=== PATIENT | female | born 1985 | race African-American/Black ===

== ENCOUNTER 2016-11-19 09:30 | Inpatient (IN) ==
[2016-11-19] MEDS ORDERED: MAGNESIUM SULFATE 4 GM/S.W.I. 100 ML IV ONE (09:38)
[2016-11-19] MEDS ORDERED: LR 1,000 ML ONE (10:17)
[2016-11-19] MEDS ORDERED: MAGNESIUM SULFATE 4 GM/S.W.I. 100 ML ONE (10:17)
[2016-11-19] MEDS ORDERED: LABETALOL ONE (10:25)
[2016-11-19] MEDS: LR 1,000 ML IV SCH (10:29)
[2016-11-19] MEDS: LABETALOL IV PRN ×2 (10:30→15:36)
[2016-11-19 10:48] LABS: BASO% 0.4 % (0.0-0.8); EOS# 0.16 X1000 (0.0-0.7); EOS% 1.2 % (0.0-10.0); HEMATOCRIT 19.7 % (37.0-47.0); HEMOGLOBIN 5.8 g/dL (12.0-16.0); IMM GRAN# 0.08 X1000 (0.0-0.04); IMM GRAN% 0.6 % (0.0-0.5); LYMPH# 2.04 X1000 (1.2-3.4); LYMPH% 15.9 % (20.5-51.1); MANUAL DIFF NEEDED? NO; MCH 24.8 PG (27-31); MCHC 29.4 g/dL (33-37); MCV 84.2 FL (81-99); MONO# 1.04 X1000 (0.11-0.59); MONO% 8.1 % (1.7-9.3); MPV 9.9 FL (7.4-10.4); NEUT% 73.8 % (42.2-75.2); PLT 391 X1000 (130-400); RBC 2.34 XMIL (4.2-5.4)
[2016-11-19] MEDS ORDERED: MAGNESIUM SULFATE IV SCH (11:00)
[2016-11-19] MEDS ORDERED: S W I IV SCH (11:00)
[2016-11-19 12:02] LABS: AGAP 13; ALKALINE PHOSPHATASE 117 U/L (32-104); BUN 12 mg/dL (8-22); CHLORIDE 110 mmol/L (98-107); COSMO 280; GOT 41 U/L (10-30); GPT 30 U/L (10-36); POTASSIUM 4.1 mmol/L (3.5-5.1); SODIUM 141 mmol/L (136-145); TCO2 18 mmol/L (25-35); TOTAL PROTEIN 5.7 g/dL (6.3-8.3)
[2016-11-19] MEDS ORDERED: BENADRYL PO ONE (12:11)
[2016-11-19] MEDS ORDERED: TYLENOL PO ONE (12:11)
[2016-11-19] MEDS ORDERED: NS 500 ML IV ONE (12:11)
[2016-11-19] MEDS ORDERED: NS 500 ML ONE (12:23)
[2016-11-19] MEDS ORDERED: XYLOCAINE-MPF 1% 5 ML ONE (13:18)
[2016-11-19 14:40] LABS: LDH 526 U/L (135-214)
[2016-11-19] MEDS: LASIX IV SCH ×2 (16:11→18:04)
[2016-11-19] MEDS ORDERED: APRESOLINE IV ONE (18:21)
--- NOTE | 2016-11-19 20:26 | HISTORY AND PHYSICAL ---
CHIEF COMPLAINT: Sent from clinic secondary to elevated blood pressures. HISTORY OF PRESENT ILLNESS: This is a 31-year-old who presented to clinic this morning 10 days status post normal spontaneous vaginal delivery. The patient was following up for a one-week blood pressure check. Patient had mild to low severe range blood pressures in the max 160s, 170s systolic during delivery and was scheduled for close outpatient follow up. On presentation today, the patient noted a headache and blood pressure was 180/95, recheck was 210/108. The patient scotoma at that time. Reflexes were normal and she had no right upper quadrant pain. The patient was sent upstairs to labor and delivery for magnesium sulfate administration and lab work. At that time an hemoglobin and hematocrit revealed hemoglobin of 5.8, 19.7, LDH was elevated at 526. However, platelets were normal at 391 and liver function tests were relatively normal. AST was mildly elevated. However, patient did not meet HELLP criteria. The patient did note that she has been asymptomatic from an anemia standpoint. At home she has noted dizziness and lack of energy while ambulating. Started to have difficulty breast feeding. OBSTETRICAL HISTORY: Status post normal spontaneous vaginal delivery of twins on 11/09/2016. COLLECTIONS AND ARCHIVES DIRECTOR HISTORY: Denies sexually transmitted infections or abnormal Pap. PAST MEDICAL HISTORY: Denies. PAST SURGICAL HISTORY: Denies. MEDICATIONS: vitamins. ALLERGIES: No known drug allergies. SOCIAL: Denies alcohol, tobacco or illicit drug use. FAMILY HISTORY: Noncontributory. REVIEW OF SYSTEMS: Negative. PHYSICAL EXAMINATION: GENERAL: Well-developed well-nourished female, in no acute distress. HEENT: Pupils equally round and reactive to light. Extraocular muscle intact. CHEST: Clear to auscultation bilaterally. CARDIOVASCULAR: Regular rate and rhythm. No murmurs, rubs, or gallops. ABDOMEN: Soft, nontender, nondistended. EXTREMITIES: No clubbing, cyanosis, +3 pitting edema to waist. LABORATORY: White count 12.81, hemoglobin and hematocrit was 5.8, 19.7, platelets 391,000. Sodium 141, potassium 4.1, chloride 110, bicarb 18, BUN is 12, creatinine 0.7, glucose 72, calcium 8. AST was mildly elevated at 41. ALT was 13. LDH 526 and uric acid 5. ASSESSMENT: 1. Severe preeclampsia, elevated lactate dehydrogenase. 2. Symptomatic anemia. 3. day #10 status post normal spontaneous vaginal delivery. PLAN: Admit patient to [facility]. We will start magnesium sulfate. The patient did not quite meet criteria for HELLP syndrome at this time. However, given blood pressures in the severe range with need for IV antihypertensive and positive headache, we will initiate magnesium sulfate. We will give IV antihypertensives p.r.n. and will follow up labs and transfuse 3 units packed red blood cells.
[2016-11-19] MEDS: TYLENOL PO ONE (22:39)
[2016-11-20] MEDS: LR 1,000 ML IV SCH (06:19)
[2016-11-20] MEDS ORDERED: TYLENOL PO ONE (06:35)
[2016-11-20] MEDS ORDERED: FIORICET PO ONE (06:56)
[2016-11-20 08:02] LABS: MANUAL DIFF NEEDED? NO
[2016-11-20 08:25] LABS: BASO% 0.3 % (0.0-0.8); EOS% 1.3 % (0.0-10.0); HEMATOCRIT 31.3 % (37.0-47.0); HEMOGLOBIN 9.9 g/dL (12.0-16.0); IMM GRAN# 0.23 X1000 (0.0-0.04); IMM GRAN% 1.5 % (0.0-0.5); LYMPH# 2.14 X1000 (1.2-3.4); LYMPH% 14.2 % (20.5-51.1); MCH 26.1 PG (27-31); MCHC 31.6 g/dL (33-37); MCV 82.6 FL (81-99); MPV 9.7 FL (7.4-10.4); NEUT% 74.7 % (42.2-75.2); PLT 379 X1000 (130-400); RBC 3.79 XMIL (4.2-5.4)
[2016-11-20 08:54] LABS: AGAP 11; ALKALINE PHOSPHATASE 125 U/L (32-104); BUN 8 mg/dL (8-22); CHLORIDE 104 mmol/L (98-107); COSMO 276; GOT 39 U/L (10-30); GPT 40 U/L (10-36); POTASSIUM 2.9 mmol/L (3.5-5.1); SODIUM 139 mmol/L (136-145); TCO2 24 mmol/L (25-35); TOTAL PROTEIN 5.7 g/dL (6.3-8.3)
[2016-11-20 08:55] LABS: CALCIUM 6.6 mg/dL (8.8-10.2)
[2016-11-20] MEDS: TRANDATE PO SCH ×3 (09:11→20:35)
[2016-11-20] MEDS ORDERED: NS IV ONE ×3 (10:30→13:45)
[2016-11-20] MEDS ORDERED: CALCIUM GLUCONATE IV ONE ×3 (10:30→13:45)
[2016-11-20] MEDS ORDERED: POTASSIUM CHLORIDE 40 MEQ in LR 1,000 ML IV SCH (11:00)
[2016-11-20] MEDS: LASIX PO SCH (14:34)
[2016-11-20] MEDS ORDERED: TRANDATE PO ONE (15:22)
[2016-11-20] MEDS ORDERED: ADALAT CC PO SCH (17:00)
[2016-11-20] MEDS: CALTRATE 600 PO SCH (17:25)
--- NOTE | 2016-11-20 17:31 | EKG Report ---
Test Performed on : 11/20/2016 5:04:59 PM Test Reason : low calcium Blood Pressure : / mmHG Vent. Rate : 070 BPM Atrial Rate : 070 BPM P-R Int : 168 ms QRS Dur : 076 ms QT Int : 474 ms P-R-T Axes : 042 055 066 degrees QTc Int : 511 ms Normal sinus rhythm. Prolonged QT Abnormal ECG No previous ECGs available Unconfirmed Result
[2016-11-20 17:33] LABS: LDH 531 U/L (135-214)
[2016-11-20] MEDS: KLOR-CON PO SCH (20:34)
[2016-11-20] MEDS ORDERED: TRANDATE PO SCH (21:00)
[2016-11-21] MEDS ORDERED: ADALAT CC PO ONE (00:32)
[2016-11-21] MEDS: TRANDATE PO SCH ×2 (05:00→13:02)
[2016-11-21 06:22] LABS: HEMATOCRIT 28.9 % (37.0-47.0); HEMOGLOBIN 8.6 g/dL (12.0-16.0); MCH 25.3 PG (27-31); MCHC 29.8 g/dL (33-37); MPV 10.1 FL (7.4-10.4); RBC 3.4 XMIL (4.2-5.4)
[2016-11-21 06:42] LABS: AGAP 8; ALBUMIN 2.9 g/dL (3.5-5.0); ALKALINE PHOSPHATASE 111 U/L (32-104); BUN 8 mg/dL (8-22); CALCIUM 7.6 mg/dL (8.8-10.2); CHLORIDE 110 mmol/L (98-107); COSMO 283; GOT 20 U/L (10-30); GPT 28 U/L (10-36); MAGNESIUM 3.1 mg/dL (1.5-2.7); POTASSIUM 3.3 mmol/L (3.5-5.1); SODIUM 142 mmol/L (136-145); TCO2 24 mmol/L (25-35); TOTAL PROTEIN 5.4 g/dL (6.3-8.3)
[2016-11-21] MEDS: LASIX PO SCH (09:00)
[2016-11-21] MEDS: CALTRATE 600 PO SCH ×3 (09:00→17:26)
[2016-11-21] MEDS: KLOR-CON PO SCH (09:00)
[2016-11-21] MEDS ORDERED: ADALAT CC PO SCH (09:00)
[2016-11-21] MEDS ORDERED: TYLENOL PO PRN (10:45)
--- NOTE | 2016-11-21 17:51 | CONSULTATION ---
DATE OF CONSULTATION: 11/21/2016 REASON FOR CONSULTATION: Medical management of the accelerated hypertension and symptomatic anemia. HISTORY OF PRESENTING ILLNESS: This is a 31-year-old female who presented to the [facility] on the morning of arrival of 11/19/2016 after she was 10 days status post a normal spontaneous vaginal delivery of twins. She was following up for her 1 week and blood pressure check. She had mild to the low severe range blood pressures with the max is in the 160s and 170s during delivery and was scheduled for close outpatient follow up. On her presentation, she presented with a headache and a blood pressure in the 180s/95, on recheck was 210/108, so she was readmitted to the hospital to the labor and delivery unit and was found to have an hemoglobin and hematocrit of 5.8 and 19.7. LDH was elevated at 526. The patient did not meet HELLP criteria. She had noted some dizziness and fatigue and decreased energy while ambulating and had begun having difficulty breast-feeding, so she was certainly symptomatic from the anemia standpoint, so she was admitted. She was placed on labetalol, calcium gluconate, on 3 different doses she received 2 g IV. She was started on nifedipine 60 mg daily, potassium 20 mEq p.o. b.i.d., she had been receiving Lasix 20 mg p.o. daily. It was noted when she arrived that she had 3+ lower extremity pitting edema. She diuresed 4 L according to the nursing staff on day 1. Today during the consultation she is stable in her current antihypertensive regimen at 137/79. After receiving 1 unit of packed red blood cells, she today has an hemoglobin and hematocrit of 8.6 and 28 point. PAST MEDICAL HISTORY: None. PAST SURGICAL HISTORY: None. FAMILY HISTORY: Noncontributory. SOCIAL HISTORY: She currently lives with family. Denied any tobacco, alcohol, or illicit drug use. ALLERGIES: She has no known drug allergies. HOME MEDICATION: She was taking Motrin 800 mg p.o. q.8 p.r.n., and a vitamin p.o. daily. LABORATORY DATA: Again on arrival showed a hemoglobin and hematocrit of 5.8 and 19.7. Today she has a white blood cell count of 12.51, a hemoglobin of 8.6, hematocrit 28.9, platelets of 366,000. Sodium is 142, potassium of 3.3, chloride 110, CO2 24, BUN of 8, creatinine 0.7, glucose 119. Calcium of 7.6. Magnesium of 3.1. REVIEW OF SYSTEMS: She was positive for a headache, dizziness, fatigue, no energy, otherwise negative review of systems. PHYSICAL EXAMINATION: Vital signs: Today she had a temperature of 98.2 degrees, pulse 77, respirations 18, blood pressure was 137/79. Again in reviewing her blood pressures, she was as high as 215/107 when she arrived, and after intervention she is back to within normal limits. General: This is a 31-year-old female who is sitting in the bed, answers questions appropriately. HEENT: Normocephalic and atraumatic. Pupils are equal, round, reactive to light. Extraocular movements are intact. Oropharynx and nares are clear. Neck: Supple. Lungs: Clear to auscultation bilaterally with equal lung expansion and chest wall movement. Heart: Regular rate and rhythm. No murmurs, rubs, or gallops. Abdomen: Soft, nontender, nondistended. Bowel sounds are present x4 quadrants. Extremities: There is no clubbing, cyanosis, or edema. Neurological: The cranial nerves 2-12 are grossly intact. ASSESSMENT: 1. Accelerated hypertension. 2. Asymptomatic anemia. 3. Hypokalemia. PLAN: We will continue her current antihypertensive med regimen. Continue to monitor her hemoglobin and hematocrit and follow back up with her HUMAN RESOURCES RECORDS CLERK as scheduled and continue to monitor her blood pressure. No changes in medication regimen at this time. Thank you for this consultation. Dictated by QUAN Gu for Sameer Rosenthal MD
[2016-11-21 18:05] VITALS: BP 147/77
--- NOTE | 2016-11-22 13:09 | DISCHARGE SUMMARY ---
ADMISSION DATE: 11/19/2016 DISCHARGE DATE: 11/21/2016 ADMITTING DIAGNOSES: 1. . 2. Hypertension. 3. Anemia. SUMMARY: Ms. Barrera is a 31-year-old, whose was approximately 10 days out from a normal spontaneous vaginal delivery. She was seen in the office for blood pressure check and blood pressures were noted to be in the 160-170s systolic range. She was reporting a headache and edema. She was sent to labor and delivery where she was started on magnesium sulfate. Laboratory evaluations at that time showed she was anemic with hemoglobin and hematocrit of 5.8/19.7. Her LDH was elevated at 526. Her platelets were normal at 391. Further evaluations showed electrolyte abnormalities. Her potassium and sodium were normal, chloride was 110 and carbon dioxide 18. She received a blood transfusion and her hemoglobin and hematocrit went up to a 9.9/31.3. She was given Lasix for her edema and she had approximately 4 L of diuresis. She is also placed on nifedipine and labetalol. The following day, her potassium had dropped to 2.9 and her calcium was 6.6. She was initially started on IV supplements but when the IV infiltrated we went over to p.o. supplements. This morning her potassium is up to 3.3 and calcium is 7.6. Repeat hemoglobin and hematocrit was 8.6/28.9 this morning. She is feeling much better after 4 L of diuresis. Cardiac and pulmonary examinations are normal. Her abdomen is nontender. Her fundus is firm. Her lochia is scant. There is no peripheral edema. We are going to let Mrs. Barrera go home. She will take it real easy this and we will see her back in the office on Friday. She will continue nifedipine and the labetalol at home. We will also continue potassium and calcium supplements.
== END 2016-11-21 18:00 | disposition home or self-care (01) | DRG 776 ==
LOC: P.LD 09:30
PROVIDERS: ADMIT Obstetrics & Gynecology; ATTEND Obstetrics & Gynecology
PROC: 30233N1 Transfusion of Nonautologous Red Blood Cells into Peripheral Vein, Percutaneous Approach (ICD-10-PCS; principal; 2016-11-19)
DX: O14.15 Severe pre-eclampsia, complicating the puerperium (principal); O90.81 Anemia of the puerperium; D64.9 Anemia, unspecified; O90.89 Other complications of the puerperium, not elsewhere classified; E87.6 Hypokalemia
CPT/HCPCS: 80053; 82330; 83615; 83735; 84550; 85025; 85027; 86850; 86870; 86900; 86901; 86920; 93005; J0360; J0610; J1940; J3475; J3480; J7040; J7120; P9016

== ENCOUNTER 2017-01-27 23:10 | Emergency (ER) ==
[2017-01-27] MEDS ORDERED: LOPRESSOR IV ONE (23:50)
--- NOTE | 2017-01-27 23:57 | PROVIDER DOCUMENTATION ---
HPI-General Adult - History of Present Illness -Gen Adult Nature of Presenting Problems: Pt reports she had hypertension during and has been on labetolol x3 months but BP is not controlled. Presents today with frontal headache, blurred vision, chest pain, and generalized weakness. Pt is 3 month old twins, vaginal delivery. Location of Pain/Injury: reports: head Pain Radiation: reports: no radiation Quality of Pain: reports: aching, throbbing Severity: reports: moderate Onset/Duration: reports: other (one month with increase in headache and onset of blurred vision tonight) Timing: reports: getting worse Modifying Factors: improves with: nothing Associated Symptoms: reports: anxiety, chest pain, headaches, weakness. denies : dizziness, nausea, shortness of breath, pain with inspiration Similar Symptoms Previously?: Yes Recently seen or treated by another doctor?: Yes <Mima Lynn - Last Filed: 01/28/17 00:17> <Lolly Manzano - Last Filed: 01/28/17 00:50> - General Chief Complaint: B/P Problems Stated Complaint: HIGH BP Time Seen by Provider: 01/27/17 23:34 Allergies/Adverse Reactions: Patient Allergies Allergy/AdvReac Type Severity Reaction Status Date / Time No Known Allergies Allergy Verified 01/27/17 23:21 Home Medications: Home Medication List Medication Instructions Recorded Confirmed Last Taken Type Labetalol [Trandate] 200 mg PO BID #30 tablet 11/21/16 01/27/17 20:00 Rx Labetalol [Trandate] 400 mg PO BID #120 tablet 01/28/17 Unknown Rx Review of Systems - Adult - REVIEW OF SYSTEMS - ADULT Constitutional: reports: fatique. denies: chills, fever Eyes: reports: blurred vision. denies: double vision Cardiovascular: reports: chest pain Respiratory: denies: shortness of breath Gastrointestinal: denies: diarrhea, nausea, vomiting Neurological: reports: dizziness/vertigo, headache/migraines All Other Systems: Reviewed and Negative <Mima Lynn - Last Filed: 01/28/17 00:17> Past History - Adult - PAST MEDICAL HISTORY-ADULT Review of Records: reports: Old Records Reviewed, Nursing Assessment Review, Medications Reviewed, Social history reviewed & non-contributory. Obstetrical/Gynecological: reports: other (pre-eclampsia) - IMMUNIZATION STATUS Childhood Immunizations: See Nurse Assessment Flu Vaccine: See Nurse Assessment - SOCIAL HISTORY Smoking: non-smoker <Mima Lynn - Last Filed: 01/28/17 00:17> Physical Exam-General - PHYSICAL EXAM-ADULT Initial Vital Signs Reviewed: Yes - CONSTITUTIONAL General Appearance: appears well, alert, no apparent distress, anxious - EYES Eyes: PERRL/EOMI, pink conjunctivae. negative: sclera injected, scleral icterus , subconjunctival hemorrhage - HEAD, EARS, NOSE, MOUTH & THROAT HENMT: normocephalic/atraumatic, moist mucous membranes, normal ENT inspection - NECK Neck: non-tender, full range of motion, supple. negative: carotid bruit - RESPIRATORY Respiratory: chest non-tender, lungs clear, normal breath sounds - CARDIOVASCULAR Cardiovascular: regular rate, rhythm, no edema. negative: no murmur - GASTROINTESTINAL (ABDOMEN) Abdominal Exam: normal bowel sounds, non tender, soft, hernia (incisional hernia in superior midline incision) - MUSCULOSKELETAL Back Exam: normal inspection, no CVA tenderness, no vertebral tenderness Extremity: normal gait, normal inspection, no pedal edema - SKIN Integumentary: normal color, normal turgor, warm/dry - NEUROLOGIC Neurologic: grossly normal, no motor/sensory deficits - PSYCHIATRIC Psych/Mental Status: normal thought content, normal thought process <Mima Lynn - Last Filed: 01/28/17 00:17> Progress - PLAN OF CARE/RESULTS Progress/Plan/Lab Results: Vital Signs Temp Pulse Resp BP Pulse Ox 01/28/17 00:26 65 169/102 01/28/17 00:11 80 22 167/113 100 01/27/17 23:35 98.3 F 69 17 183/124 100 01/27/17 23:16 97.8 F 77 16 195/118 100 No Known Allergies Allergy (Verified 01/27/17 23:21) Labetalol [Trandate] 200 mg PO BID #30 tablet 11/21/16 Orders Category Date Time Status CHEST-2 VIEWS [RAD] Stat Exams 01/27/17 23:23 Taken Lorazepam [Ativan] Med 01/28/17 00:13 Discontinued 0.5 mg IV NOW ONE Metoprolol [Lopressor] Med 01/27/17 23:50 Discontinued 5 mg IV NOW ONE - XRAY 1 XRAY Study: Chest Impression: Normal XRAY Interpretation: no cardiomegaly <Mima Lynn - Last Filed: 01/28/17 00:17> - CT/MRI 1 CT Study: Cervical Spine, Head Impression: Normal CT Results: No acute intracranial abnormality. No acute cervical spine or cranial fx <NatachaLolly - Last Filed: 01/28/17 00:50> Departure - Departure Time of Disposition Order: 00:28 Certified Medical Emergency: Emergent <Mima Lynn - Last Filed: 01/28/17 00:17> <Natacha,Lolly - Last Filed: 01/28/17 00:50> - Departure DIAGNOSIS: Hypertension Qualifiers: Hypertension type: essential hypertension Qualified Code(s): I10 - Essential ( primary) hypertension Disposition: HOME 01 Condition: Good Additional Instructions: ED Follow Up Instructions: You have been treated by a care provider in the Emergency Department. These instructions are being provided to you so you can have an understanding of how to care for yourself upon discharge. Upon discharge from the Emergency Department, you are responsible for making arrangements for follow-up care by a physician of your choice. Take all prescribed medications as directed. Return to the Emergency Department immediately for any new or worsening symptoms. You may call the Physician Referral phone number at [phone] to obtain a list of Physicians who are taking new patients. Prescriptions: Labetalol [Trandate] 400 mg PO BID #120 tablet Referrals: Ward Hugo MD [Primary Care Provider] - Forms: Return to School/Parent Work Instructions: Labetalol tablets, Hypertension, Aona-be-Gepd Attestation - Physician/ PRACHI Attestation Patient care was provided by Advanced Practice Provider:: Yes Advanced Practice Provider:: Mima Lynn Advanced Practice Provider documentation review:: The Mid-level provider documentation, treatment plan and medical decision making was reviewed by the physician who agrees with all treatment and medical decision making by the MLP. <Mima Lynn - Last Filed: 01/28/17 00:17> Physician Attestation
[2017-01-28] MEDS ORDERED: ATIVAN IV ONE (00:13)
[2017-01-28] MEDS ORDERED: TYLENOL PO ONE (01:51)
[2017-01-28 01:58] VITALS: BP 165/109
--- NOTE | 2017-01-28 06:32 | Diag Imaging Result Document ---
PROCEDURE NAME: CHEST-2 VIEWS - 01/27/2017 FRONTAL AND LATERAL CHEST, TWO VIEWS: FINDINGS: The lungs are well expanded. The heart is not enlarged. The vessels are not distended. No pneumonia. No pleural effusions. IMPRESSION: No acute abnormality.
== END 2017-01-28 01:58 | disposition home or self-care (01) ==
LOC: P.ED 23:10
DX: I10 Essential (primary) hypertension (principal); R51 Headache; H53.8 Other visual disturbances; R07.9 Chest pain, unspecified; R53.1 Weakness; R53.83 Other fatigue; R42 Dizziness and giddiness; K43.2 Incisional hernia without obstruction or gangrene
CPT/HCPCS: 71020; 96374; 96375; J2060

== ENCOUNTER 2017-02-06 19:39 | Emergency (ER) ==
[2017-02-06 20:41] VITALS: BP 137/79
== END 2017-02-06 22:00 | disposition left against medical advice (07) ==
LOC: P.ED 19:39
DX: R42 Dizziness and giddiness (principal); Z53.21 Procedure and treatment not carried out due to patient leaving prior to being seen by health care provider